=== PATIENT | female | born 1980 | race Caucasian/White ===

== ENCOUNTER 2020-04-14 10:10 | Emergency (ER) | payer SELFPAY ==
[~2020-04-14] VITALS: Ht 152.4 cm; Wt 73.5 kg
[2020-04-14 10:10] VITALS: BP 123/80
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
[2020-04-14] MEDS ORDERED: HYDROcodone/APAP 5/325 MG 1 TAB TAB PO ONE (10:40)
[2020-04-14] MEDS ORDERED: KETOROLAC 60 MG/2 ML VIAL IM ONE (10:40)
--- NOTE | 2020-04-14 10:48 | NUR ---
XRAY AT BEDSIDE
[2020-04-14] MEDS ORDERED: NAPR-54 PO (12:11)
[2020-04-14] MEDS ORDERED: ACET-9525 PO (12:12)
--- NOTE | 2020-04-14 12:14 | NUR ---
applied ankle stirup to right ankle without any issues. pt demonstrated proper use of crutches
[2020-04-14 12:27] VITALS: BP 121/78
--- NOTE | 2020-04-14 12:27 | NUR ---
Patient discharged with v/s stable. Written and verbal after care instructions given and explained. Patient alert, oriented and verbalized understanding of instructions. Ambulatory with steady gait. All questions addressed prior to discharge. ID band removed. Patient advised to follow up with PMD. Rx of NORCO, NAPROSYN given. Patient educated on indication of medication including possible reaction and side effects. Opportunity to ask questions provided and answered.
== END 2020-04-14 12:27 | disposition home or self-care (01) ==
LOC: MED 10:10
DX: S93.491A Sprain of other ligament of right ankle, initial encounter (principal); S30.1XXA Contusion of abdominal wall, initial encounter; S60.221A Contusion of right hand, initial encounter; S40.021A Contusion of right upper arm, initial encounter; Z79.899 Other long term (current) drug therapy; V49.9XXA Car occupant (driver) (passenger) injured in unspecified traffic accident, initial encounter; Y93.89 Activity, other specified; Y92.89 Other specified places as the place of occurrence of the external cause; Y99.8 Other external cause status
CPT/HCPCS: 29515; 71045; 73060; 73130; 73610; 96372; 99284; J1885

== ENCOUNTER 2023-10-23 18:05 | Emergency (ER) | payer OTHER ==
[~2023-10-23] VITALS: Ht 149.9 cm; Wt 70.8 kg
[~2023-10-23 18:05] MED LIST: ACET-9525 PO; NAPR-337 PO
[2023-10-23 18:14] VITALS: BP 120/73; PULSE 109; RESP 18; TEMP 98.2; O2SAT 99
[2023-10-23 19:35] LABS: APPEARANCE,URINE CLEAR (CLEAR); BILIRUBIN,URINE NEGATIVE (NEGATIVE); BLOOD, URINE NEGATIVE (NEGATIVE); COLOR,URINE YELLOW (YELLOW); LEUKOCYTE ESTERASE ,URINE NEGATIVE (NEGATIVE); NITRITE, URINE NEGATIVE (NEGATIVE); PROTEIN,URINE NEGATIVE (NEGATIVE); UGLUCOSE NEGATIVE (NEGATIVE); UROBILINOGEN,URINE 0.2 EU/dL (0.2 - 1)
[2023-10-23 19:52] LABS: CALCIUM 8.3 mg/dL (8.5-10.1); CREATININE 0.7 mg/dL (0.6-1.3); POTASSIUM 3.6 mmol/L (3.5-5.1)
[2023-10-23 19:53] LABS: BASOPHILS % (AUTO) 0.2 % (0.0-2.0); EOSINOPHILS # (AUTO) 0.1 K/uL (0-0.4); EOSINOPHILS % (AUTO) 0.6 % (0.0-4.0); HEMATOCRIT 31.9 % (36-48); HEMOGLOBIN 9.8 g/dL (12.0-16.0); LYMPHOCYTES # (AUTO) 0.8 K/uL (2.5-16.5); LYMPHOCYTES % (AUTO) 6.5 % (20.5-51.1); MEAN CORPUSCULAR HEMOGLOBIN 21 pg (27-31); MEAN CORPUSCULAR HGB CONC 31 g/dL (33-37); MEAN CORPUSCULAR VOLUME 68.6 fL (80-94); MONOCYTES # (AUTO) 0.4 K/uL (0.8-1.0); NEUTROPHILS # (AUTO) 11.6 K/uL (1.8-7.7); NEUTROPHILS % (AUTO) 89.7 % (42.2-75.2); PLATELET COUNT (AUTO) 340 K/uL (140-450); RED BLOOD CELL COUNT(AUTO) 4.65 MIL/uL (4.20-5.40); RED CELL DISTRIBUTION WIDTH 18.1 % (11.6-13.7)
[2023-10-23 19:58] LABS: CARBON DIOXIDE 26.6 mmol/L (21-32)
[2023-10-23] MEDS: MORPHINE SULFATE 4 MG/ML SYR IVP ONE ×2 (19:59→23:38)
[2023-10-23] MEDS: ONDANSETRON 4 MG/2 ML VIAL IVP ONE ×2 (20:00→23:38)
[2023-10-24] MEDS ORDERED: METR-435 PO (02:44)
[2023-10-24] MEDS ORDERED: NAPR-337 PO (02:45)
[2023-10-24 02:52] VITALS: BP 110/63; PULSE 112; RESP 15; TEMP 98; O2SAT 98
== END 2023-10-24 02:52 | disposition home or self-care (01) ==
LOC: MED 18:05
DX: N76.0 Acute vaginitis (principal); B96.89 Other specified bacterial agents as the cause of diseases classified elsewhere; Z79.899 Other long term (current) drug therapy; Z98.890 Other specified postprocedural states
CPT/HCPCS: 36415; 74176; 80048; 81003; 81025; 85025; 87040; 87210; 96374; 96375; 96376; 99285; J2270; J2405